=== PATIENT | male | born 1950 | race Hispanic/Latino ===

== ENCOUNTER 2018-02-09 19:27 | Emergency (ER) | payer BC, MEDICARE ==
[2018-02-09] MEDS ORDERED: Ketorolac Tromethamine 30 MG/ML VIAL ONE (20:11)
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
== END 2018-02-09 22:16 | disposition home or self-care (01) ==
LOC: ERS 19:27
DX: S16.1XXA Strain of muscle, fascia and tendon at neck level, initial encounter (principal); E11.9 Type 2 diabetes mellitus without complications; K21.9 Gastro-esophageal reflux disease without esophagitis; Z85.46 Personal history of malignant neoplasm of prostate; Z87.891 Personal history of nicotine dependence; V49.40XA Driver injured in collision with unspecified motor vehicles in traffic accident, initial encounter
CPT/HCPCS: 72125; 96372; J1885

== ENCOUNTER 2019-12-20 22:38 | Emergency (ER) | payer MEDICARE ==
[2019-12-20] MEDS ORDERED: Morphine 4 MG/ML VIAL ONE (23:15)
[2019-12-20] MEDS ORDERED: Ondansetron PF 4 MG/2 ML Vial ONE (23:15)
[2019-12-20 23:41] LABS: #Eosinphils 0.1 thou/uL (0.0-0.7); #Lymphocytes 2.1 thou/uL (1.20-3.40); #Monocytes 0.7 thou/uL (0.11-0.59); #Neutrophils 5.7 thou/uL (1.40-6.50); %Basophils 0.2 % (0.0-1.0); %Eosinophils 1.6 % (0.0-10.0); %Lymphocytes 24.3 % (21.0-51.0); %Monocytes 7.5 % (0.0-10.0); %Neutrophils 66.3 % (42.0-75.0); Hemoglobin 14.2 g/dL (14.0-18.0); Mean Corpuscular HGB CONC 33.3 g/dL (32.0-36.0); Mean Corpuscular Hemoglobin 29.7 pg (27.0-31.0); Mean Platelet Volume 7.9 fL (7.4-10.4); Platelet Count 302 thou/uL (130-400); RBC Distribution Width 11.9 % (11.5-14.5); Red Blood Cell (RBC) Count 4.77 mill/uL (4.70-6.10); White Blood Cell (WBC) Count 8.6 thou/uL (4.8-10.8)
[2019-12-21 00:02] LABS: ALT (SGPT) 30 U/L (8-55); AST (SGOT) 28 U/L (5-34); Albumin 4.2 g/dL (3.4-4.8); Alkaline Phosphatase 74 U/L (40-110); Anion Gap 10 mmol/L (10-20); BUN (Urea Nitrogen) 10 mg/dL (8.4-25.7); Bilirubin, Total 0.4 mg/dL (0.2-1.2); Calc. Creatinine Clearance 0 mL/min (70-130); Calcium 8.9 mg/dL (7.8-10.44); Carbon Dioxide 27 mmol/L (23-31); Chloride 103 mmol/L (98-107); Estimated GFR-MDRD Greater than 90; Globulin 2.8 g/dL (2.4-3.5); Glucose 186 mg/dL (80-115); Lipase 43 U/L (8-78); Potassium 3.7 mmol/L (3.5-5.1); Sodium 136 mmol/L (136-145)
== END 2019-12-21 00:10 | disposition home or self-care (01) ==
LOC: ERS 22:38
DX: R10.11 Right upper quadrant pain (principal); R10.13 Epigastric pain; E11.9 Type 2 diabetes mellitus without complications; K21.9 Gastro-esophageal reflux disease without esophagitis
CPT/HCPCS: 80053; 83690; 84484; 85025; 96374; 96375; J2270; J2405

== ENCOUNTER 2021-04-07 07:43 | Emergency (ER) | payer OTHER, MEDICARE ==
[2021-04-07] MEDS ORDERED: Ketorolac Tromethamine 30 MG/ML VIAL ONE (09:35)
[2021-04-07] MEDS ORDERED: Diazepam 5 MG TAB ONE (09:47)
[2021-04-07 10:01] LABS: Bilirubin Negative (Negative); Blood, Urine Negative (Negative); Clarity Clear (Clear); Glucose, Urine (Dipstick) Normal (Negative); Ketone, Urine Negative (Negative); Leukocyte Negative Leu/uL (Negative); Nitrite Negative (Negative); Protein, Urine (Dipstick) Negative (Neg-Trace); Specific Gravity, Urine 1.013 (1.002-1.036); Urobilinogen Normal mg/dL (Less than 2)
== END 2021-04-07 13:04 | disposition home or self-care (01) ==
LOC: ERS 07:43
DX: R07.81 Pleurodynia (principal); E78.5 Hyperlipidemia, unspecified; E11.9 Type 2 diabetes mellitus without complications; K21.9 Gastro-esophageal reflux disease without esophagitis; Z87.891 Personal history of nicotine dependence; V89.2XXA Person injured in unspecified motor-vehicle accident, traffic, initial encounter
CPT/HCPCS: 81003; 96372; J1885

== ENCOUNTER 2023-01-15 13:41 | Emergency (ER) | payer MEDICARE ==
[2023-01-15] MEDS ORDERED: Ketorolac Tromethamine 30 MG/ML VIAL ONE (14:28)
[2023-01-15] MEDS ORDERED: Ondansetron PF 4 MG/2 ML Vial ONE (14:28)
[2023-01-15 14:45] LABS: #Lymphocytes 1.9 thou/uL (1.20-3.40); #Monocytes 0.6 thou/uL (0.11-0.59); #Neutrophils 6.5 thou/uL (1.40-6.50); %Basophils 0.4 % (0.0-1.0); %Eosinophils 0.5 % (0.0-10.0); %Lymphocytes 21.1 % (21.0-51.0); Hemoglobin 14.4 g/dL (14.0-18.0); Mean Corpuscular HGB CONC 34.4 g/dL (32.0-36.0); Mean Corpuscular Hemoglobin 30.7 pg (27.0-31.0); Mean Corpuscular Volume 89.5 fl (78.0-98.0); Mean Platelet Volume 7.1 fL (7.4-10.4); Platelet Count 299 10x3/uL (130-400); RBC Distribution Width 13.1 % (11.5-14.5); Red Blood Cell (RBC) Count 4.69 mill/uL (4.70-6.10)
[2023-01-15 14:58] LABS: ALT (SGPT) 14 U/L (8-55); AST (SGOT) 20 U/L (5-34); Albumin 4.2 g/dL (3.4-4.8); Alkaline Phosphatase 75 U/L (40-110); Anion Gap 15 mmol/L (10-20); BUN (Urea Nitrogen) 13 mg/dL (8.4-25.7); Bilirubin, Total 0.6 mg/dL (0.2-1.2); Calc. Creatinine Clearance 0 mL/min (70-130); Calcium 9.1 mg/dL (7.8-10.44); Carbon Dioxide 20 mmol/L (23-31); Chloride 105 mmol/L (98-107); Estimated GFR 98; Glucose 143 mg/dL (83-110); Lipase 26 U/L (8-78); Potassium 3.9 mmol/L (3.5-5.1); Protein, Total 7.2 g/dL (5.8-8.1); Sodium 136 mmol/L (136-145)
[2023-01-15 15:57] LABS: Bilirubin Negative (Negative); Blood, Urine Negative (Negative); Clarity Clear (Clear); Glucose, Urine (Dipstick) Normal (Negative); Ketone, Urine Negative (Negative); Leukocyte Negative Leu/uL (Negative); Nitrite Negative (Negative); Protein, Urine (Dipstick) Negative (Neg-Trace); Specific Gravity, Urine 1.015 (1.002-1.036); Urobilinogen Normal mg/dL (Less than 2)
== END 2023-01-15 16:43 | disposition home or self-care (01) ==
LOC: ERS 13:41
DX: R11.2 Nausea with vomiting, unspecified (principal); K59.00 Constipation, unspecified; R42 Dizziness and giddiness; E78.5 Hyperlipidemia, unspecified; K21.9 Gastro-esophageal reflux disease without esophagitis; E11.9 Type 2 diabetes mellitus without complications
CPT/HCPCS: 71045; 74176; 80053; 81003; 83690; 84484; 85025; 93005; 96361; 96374; 96375; J1885; J2405